=== PATIENT | male | born 1950 | race Caucasian/White ===

== ENCOUNTER 2017-05-01 08:54 | Day surgery (SDC) | payer OTHER ==
[2017-05-01] MEDS ORDERED: FENTAnyl 50 MCG/ML VIAL (11:51)
[2017-05-01] MEDS ORDERED: MIDAZOLAM 1 MG/ML 2 ML INJ ×4 (11:51→11:52)
[2017-05-01] MEDS ORDERED: ONDANSETRON 4 MG INJ (12:16)
== END 2017-05-01 12:40 | disposition home or self-care (01) ==
LOC: GIL 08:54
DX: Z12.11 Encounter for screening for malignant neoplasm of colon (principal); D12.5 Benign neoplasm of sigmoid colon; K64.8 Other hemorrhoids; I10 Essential (primary) hypertension
CPT/HCPCS: 45380; 88305